=== PATIENT | female | born 1960 | race Caucasian/White ===

== ENCOUNTER → 2019-02-05 | Outpatient (CLI) | payer OTHER ==
[2019-02-05 21:25] LABS: Campylobacter Sp Not Detected (NOT DETECT)
[2019-02-05 21:26] LABS: Adenovirus F 40/41 Not Detected (NOT DETECT); Astrovirus Not Detected (NOT DETECT); Cryptosporidium Not Detected (NOT DETECT); Cyclospora Cayetanensis Not Detected (NOT DETECT); E. Coli O157 Not Detected (NOT DETECT); Entamoeba Histolytica Not Detected (NOT DETECT); Enteroaggregative E. coli-EAEC Not Detected (NOT DETECT); Enteropathogenic E. coli-EPEC Not Detected (NOT DETECT); Enterotoxigenic E. coli-ETEC Not Detected (NOT DETECT); Giardia Lamblia Not Detected (NOT DETECT); Norovirus GI/GII Not Detected (NOT DETECT); Plesiomonas Shigelloides Not Detected (NOT DETECT); Rotavirus A Not Detected (NOT DETECT); Salmonella Sp Not Detected (NOT DETECT); Sapovirus Not Detected (NOT DETECT); Shiga Toxin-prod E. coli-STEC Not Detected (NOT DETECT); Shigella/Enteroin E. coli-EIEC Not Detected (NOT DETECT); Vibrio Cholerae Not Detected (NOT DETECT); Vibrio Sp Not Detected (NOT DETECT); Yersinia Enterocolitica Not Detected (NOT DETECT)
== END | disposition home or self-care (01) ==
LOC: LAB SHORT 11:31 → LAB EV 11:31
PROVIDERS: Physician Assistant
DX: L65.9 Nonscarring hair loss, unspecified (principal); R19.7 Diarrhea, unspecified
CPT/HCPCS: 0097U; 84443

== ENCOUNTER → 2019-02-13 | Outpatient (CLI) | payer OTHER ==
[2019-02-13 10:01] LABS: BASOPHILS ABSOLUTE AUTO 0.06 K/mm3 (0.00-0.23); BASOPHILS PERCENT AUTO 1 % (0-2); EOSINOPHILS ABSOLUTE AUTO 0.19 K/mm3 (0.00-0.68); EOSINOPHILS PERCENT AUTO 3 % (0-6); Hematocrit 35.5 % (33.0-51.0); Hemoglobin 12.3 g/dL (11.5-16.0); IMMATURE GRAN ABSOLUTE AUTO 0.03 K/mm3 (0.00-0.10); IMMATURE GRAN PERCENT AUTO 0 % (0-1); LYMPHOCYTES ABSOLUTE AUTO 2.04 K/mm3 (0.84-5.20); LYMPHOCYTES PERCENT AUTO 27 % (21-46); MONOCYTES PERCENT AUTO 12 % (4-13); Mean Corpuscular HGB 33.9 pg (26.0-34.0); Mean Corpuscular HGB Conc 34.6 g/dL (31.5-36.5); Mean Corpuscular Volume 98 fL (80-100); Mean Platelet Volume 10.7 fL (9.1-12.4); NEUTROPHILS ABSOLUTE AUTO 4.34 K/mm3 (1.96-9.15); NEUTROPHILS PERCENT AUTO 57 % (41-73); Platelet Count 405 K/mm3 (150-400); RDW Coefficient Variation 11.8 % (11.7-14.2); RDW Standard Deviation 41.9 fL (35.1-46.3); Red Blood Cell Count 3.63 M/mm3 (3.80-5.20); White Blood Cell Count 7.56 K/mm3 (4.00-11.30)
[2019-02-13 10:10] LABS: Albumin, Blood 2.9 g/dL (3.4-5.0); Albumin/Globulin Ratio 0.8 (0.8-1.8); Bilirubin, Total 0.3 mg/dL (0.1-1.0); Calcium, Blood 8.9 mg/dL (8.5-10.1); Globulin, Blood 3.6 g/dL (2.2-4.0); Potassium, Blood 5.1 mmol/L (3.5-5.5); Total Protein, Blood 6.5 g/dL (6.4-8.2)
== END | disposition home or self-care (01) ==
LOC: LAB SHORT 09:54 → LAB EV 09:54
PROVIDERS: Physician Assistant
DX: R63.4 Abnormal weight loss (principal)
CPT/HCPCS: 80053; 85025

== ENCOUNTER → 2019-02-14 | Outpatient (CLI) | payer OTHER ==
[2019-02-15 19:06] LABS: T-TRANSGLUTAMINASE (TTG) IGA <2 U/mL (0-3); T-TRANSGLUTAMINASE (TTG) IGG <2 U/mL (0-5)
[2019-02-17 21:05] LABS: F001-IGE EGG WHITE <0.10 kU/L (Class 0); F002-IGE MILK 0.14 kU/L (Class 0/I); F003-IGE CODFISH <0.10 kU/L (Class 0); F004-IGE WHEAT 0.73 kU/L (Class II); F005-IGE RYE 0.29 kU/L (Class 0/I); F006-IGE BARLEY 0.64 kU/L (Class II); F007-IGE OAT 0.27 kU/L (Class 0/I); F009-IGE RICE <0.10 kU/L (Class 0); F012-IGE GREEN PEA <0.10 kU/L (Class 0); F013-IGE PEANUT <0.10 kU/L (Class 0); F014-IGE SOYBEAN <0.10 kU/L (Class 0); F015-IGE WHITE BEAN <0.10 kU/L (Class 0); F017-IGE HAZELNUT (FILBERT) <0.10 kU/L (Class 0); F020-IGE ALMOND <0.10 kU/L (Class 0); F023-IGE CRAB 0.54 kU/L (Class I); F024-IGE SHRIMP 0.15 kU/L (Class 0/I); F025-IGE TOMATO 0.25 kU/L (Class 0/I); F026-IGE PORK <0.10 kU/L (Class 0); F027-IGE BEEF <0.10 kU/L (Class 0); F031-IGE CARROT 0.12 kU/L (Class 0/I); F033-IGE ORANGE 0.11 kU/L (Class 0/I); F035-IGE POTATO, WHITE <0.10 kU/L (Class 0); F040-IGE TUNA <0.10 kU/L (Class 0); F041-IGE SALMON <0.10 kU/L (Class 0); F045-IGE YEAST <0.10 kU/L (Class 0); F047-IGE GARLIC 0.11 kU/L (Class 0/I); F083-IGE CHICKEN <0.10 kU/L (Class 0); F089-IGE MUSTARD <0.10 kU/L (Class 0); F093-IGE CHOCOLATE/CACAO <0.10 kU/L (Class 0); F202-IGE CASHEW NUT <0.10 kU/L (Class 0); F215-IGE LETTUCE <0.10 kU/L (Class 0); F256-IGE WALNUT <0.10 kU/L (Class 0); F263-IGE GREEN BELL PEPPER <0.10 kU/L (Class 0); F338-IGE SCALLOP 1.58 kU/L (Class III)
== END | disposition home or self-care (01) ==
LOC: LAB SHORT 10:19 → LAB EV 10:19
PROVIDERS: Physician Assistant Medical
DX: R19.7 Diarrhea, unspecified (principal)
CPT/HCPCS: 83516

== ENCOUNTER → 2019-09-01 | Outpatient (CLI) | payer OTHER | END | disposition home or self-care (01) | LOC: LAB EV 11:48 → LAB SHORT 11:48 | DX: E87.5 Hyperkalemia (principal) | CPT/HCPCS: 84132 ==

== ENCOUNTER → 2023-08-08 | Outpatient (CLI) | payer OTHER ==
[~2023-08-08] MED LIST: CLIMARA1 EACH TOP; Celexa20 MG PO; LISI20 PO; VITAMIN D5000 UNIT PO
[2023-08-08 19:23] LABS: BASOPHILS ABSOLUTE AUTO 0.05 K/mm3 (0.00-0.23); BASOPHILS PERCENT AUTO 1 % (0-2); EOSINOPHILS ABSOLUTE AUTO 0.37 K/mm3 (0.00-0.68); EOSINOPHILS PERCENT AUTO 4 % (0-6); Hematocrit 36.4 % (33.0-51.0); Hemoglobin 12.2 g/dL (11.5-16.0); IMMATURE GRAN ABSOLUTE AUTO 0.03 K/mm3 (0.00-0.10); IMMATURE GRAN PERCENT AUTO 0 % (0-1); LYMPHOCYTES ABSOLUTE AUTO 3.02 K/mm3 (0.84-5.20); LYMPHOCYTES PERCENT AUTO 32 % (21-46); MONOCYTES ABSOLUTE AUTO 0.88 K/mm3 (0.16-1.47); MONOCYTES PERCENT AUTO 9 % (4-13); Mean Corpuscular HGB 33.3 pg (26.0-34.0); Mean Corpuscular HGB Conc 33.5 g/dL (31.5-36.5); Mean Corpuscular Volume 100 fL (80-100); Mean Platelet Volume 11.5 fL (9.1-12.4); NEUTROPHILS ABSOLUTE AUTO 5.05 K/mm3 (1.96-9.15); NEUTROPHILS PERCENT AUTO 54 % (41-73); Platelet Count 339 K/mm3 (150-400); RDW Coefficient Variation 12.1 % (11.7-14.2); RDW Standard Deviation 44.7 fL (35.1-46.3); Red Blood Cell Count 3.66 M/mm3 (3.80-5.20)
[2023-08-08 20:49] LABS: Alanine Aminotransfer (ALT/SGP 21 U/L (12-78); Albumin, Blood 4.3 g/dL (3.4-5.0); Albumin/Globulin Ratio 1.2 (0.8-1.8); Alk Phos 73 U/L (50-136); Anion Gap 10 mmol/L (3-11); Aspartate Aminotrans (AST/SGOT 30 U/L (12-37); Bilirubin, Total 0.3 mg/dL (0.1-1.0); Blood Urea Nitrogen 38 mg/dL (8-24); Bun/Creatinine Ratio 33.6 (12.0-20.0); CHOL/HDL RATIO 3.5; CO2, Blood 24 mmol/L (21-32); Calcium, Blood 9.3 mg/dL (8.5-10.1); Chloride, Blood 103 mmol/L (98-108); Cholesterol 214 mg/dL (50-200); Creatinine, Blood 1.13 mg/dL (0.40-1.00); Globulin, Blood 3.7 g/dL (2.2-4.0); Glomerular Filtration Rate 55 (60-); Glucose, Blood 97 mg/dL (70-99); HDL Cholesterol 61 mg/dL (>39); LDL/HDL RATIO 1.8; Low Density Lipoprotein Chol 109 mg/dL (0-110); Potassium, Blood 4.3 mmol/L (3.5-5.5); Sodium, Blood 133 mmol/L (136-145); Triglycerides 220 mg/dL (30-160); Very Low Density Lipoprot Chol 44 mg/dL (6-32)
== END ==
LOC: LAB SHORT 16:20 → LAB 16:20
PROVIDERS: Family Medicine
DX: I10 Essential (primary) hypertension (principal)
CPT/HCPCS: 80053; 80061; 85025

== ENCOUNTER → 2023-11-18 | Outpatient (CLI) | payer OTHER ==
[2023-11-18 17:03] LABS: BASOPHILS ABSOLUTE AUTO 0.05 K/mm3 (0.00-0.23); BASOPHILS PERCENT AUTO 0 % (0-2); EOSINOPHILS ABSOLUTE AUTO 0.22 K/mm3 (0.00-0.68); EOSINOPHILS PERCENT AUTO 2 % (0-6); Hemoglobin 11.6 g/dL (11.5-16.0); IMMATURE GRAN ABSOLUTE AUTO 0.06 K/mm3 (0.00-0.10); IMMATURE GRAN PERCENT AUTO 1 % (0-1); LYMPHOCYTES ABSOLUTE AUTO 2.37 K/mm3 (0.84-5.20); LYMPHOCYTES PERCENT AUTO 20 % (21-46); MONOCYTES PERCENT AUTO 7 % (4-13); Mean Corpuscular HGB 32.5 pg (26.0-34.0); Mean Corpuscular HGB Conc 33.1 g/dL (31.5-36.5); Mean Corpuscular Volume 98 fL (80-100); Mean Platelet Volume 12.2 fL (9.1-12.4); NEUTROPHILS ABSOLUTE AUTO 8.66 K/mm3 (1.96-9.15); NEUTROPHILS PERCENT AUTO 71 % (41-73); Platelet Count 301 K/mm3 (150-400); RDW Coefficient Variation 13.4 % (11.7-14.2); RDW Standard Deviation 48.6 fL (35.1-46.3); Red Blood Cell Count 3.57 M/mm3 (3.80-5.20); White Blood Cell Count 12.16 K/mm3 (4.00-11.30)
== END ==
LOC: LAB SHORT 11:30 → LAB 11:30
PROVIDERS: Family Medicine
DX: R53.83 Other fatigue (principal)
CPT/HCPCS: 84443; 85025

== ENCOUNTER → 2024-02-22 | Outpatient (CLI) | payer OTHER ==
[2024-02-22 20:40] LABS: Albumin, Blood 4.1 g/dL (3.4-5.0); Albumin/Globulin Ratio 1.2 (0.8-1.8); Bilirubin, Total 0.7 mg/dL (0.1-1.0); Bun/Creatinine Ratio 20.8 (12.0-20.0); Creatinine, Blood 1.01 mg/dL (0.40-1.00); Globulin, Blood 3.4 g/dL (2.2-4.0); Potassium, Blood 4.7 mmol/L (3.5-5.5); Total Protein, Blood 7.5 g/dL (6.4-8.2)
== END ==
LOC: LAB 11:15 → LAB SHORT 11:15
PROVIDERS: Family Medicine
DX: N18.31 Chronic kidney disease, stage 3a (principal)
CPT/HCPCS: 80053

== ENCOUNTER → 2024-08-22 | Outpatient (CLI) | payer OTHER | LOC: LAB SHORT 15:10 → LAB 15:10 | DX: I12.9 Hypertensive chronic kidney disease with stage 1 through stage 4 chronic kidney disease, or unspecified chronic kidney disease (principal); R53.83 Other fatigue ==